=== PATIENT | female | born 1950 | race Caucasian/White ===

== ENCOUNTER 2018-05-02 12:33 | Outpatient (CLI) | payer MEDICARE | END 2018-05-02 12:34 | disposition home or self-care (01) | LOC: BICMAMMO 12:33 | PROVIDERS: ATTEND Obstetrics & Gynecology | DX: Z12.31 Encounter for screening mammogram for malignant neoplasm of breast (principal) | CPT/HCPCS: 77063; 77067 ==

== ENCOUNTER 2020-05-04 11:48 | Outpatient (CLI) | payer MEDICARE ==
--- NOTE | 2020-05-04 12:53 | MMO ---
Bilateral MAMMO Bilat Screen [facility]. CLINICAL HISTORY: Patient is 69 years old and is seen for screening. The patient has the following family history of breast cancer: mother. The patient has no personal history of cancer. The patient has a history of bilateral Excisional Biopsy in ? - benign. VIEWS: The views performed were: bilateral craniocaudal with tomosynthesis and bilateral mediolateral oblique with tomosynthesis. FILMS COMPARED: The present examination has been compared to prior imaging studies performed at [facility] on 04/20/2016, 04/21/2017, 05/02/2018 and 05/03/2019. This study has been interpreted with the assistance of computer-aided detection. MAMMOGRAM FINDINGS: There are scattered fibroglandular densities. There are no suspicious masses, suspicious calcifications, or new areas of architectural distortion. IMPRESSION: THERE IS NO MAMMOGRAPHIC EVIDENCE OF MALIGNANCY. A ROUTINE FOLLOW-UP MAMMOGRAM IN 1 YEAR IS RECOMMENDED. THE RESULTS OF THIS EXAM WERE SENT TO THE PATIENT. ACR BI-RADS Category 1 - Negative MAMMOGRAPHY NOTE: 1. A negative mammogram report should not delay a biopsy if a dominant of clinically suspicious mass is present. 2. Approximately 10% to 15% of breast cancers are not detected by mammography. 3. Adenosis and dense breasts may obscure an underlying neoplasm. Reported by: JAKOB BOONE MD Electonically Signed: [id number]
== END 2020-05-04 11:49 | disposition home or self-care (01) ==
LOC: BICMAMMO 11:48
PROVIDERS: ATTEND Obstetrics & Gynecology
DX: Z12.31 Encounter for screening mammogram for malignant neoplasm of breast (principal); Z80.3 Family history of malignant neoplasm of breast
CPT/HCPCS: 77063; 77067

== ENCOUNTER 2020-06-12 12:42 | Outpatient (CLI) | payer MEDICARE, OTHER ==
--- NOTE | 2020-06-12 12:59 | RAD ---
EXAM: Chest 2 views: HISTORY: Dyspnea COMPARISON: None. FINDINGS: There is a normal-sized cardiomediastinal silhouette. There is a calcified granuloma in the right sandi ng base. There is no evidence of consolidation or pleural effusion. The bones are unremarkable. IMPRESSION: No evidence of acute cardiopulmonary disease
== END 2020-06-12 12:43 | disposition home or self-care (01) ==
LOC: BICRAD 12:42
PROVIDERS: ATTEND Internal Medicine Critical Care Medicine
DX: R06.00 Dyspnea, unspecified (principal)
CPT/HCPCS: 71046

== ENCOUNTER 2021-04-29 12:51 | Outpatient (CLI) | payer MEDICARE, OTHER | END 2021-04-29 12:52 | disposition home or self-care (01) | LOC: BICRAD 12:51 | PROVIDERS: ATTEND Internal Medicine Critical Care Medicine | DX: R06.00 Dyspnea, unspecified (principal) | CPT/HCPCS: 71046 ==

== ENCOUNTER 2021-07-29 11:45 | Outpatient (CLI) | payer MEDICARE, OTHER | END 2021-07-29 11:46 | disposition home or self-care (01) | LOC: BICMAMMO 11:45 | PROVIDERS: ATTEND Obstetrics & Gynecology | DX: Z12.31 Encounter for screening mammogram for malignant neoplasm of breast (principal); Z80.3 Family history of malignant neoplasm of breast | CPT/HCPCS: 77063; 77067 ==